=== PATIENT | female | born 1960 | race Caucasian/White ===

== ENCOUNTER 2024-08-30 10:09 | Emergency (ER) | payer BC, OTHER ==
[2024-08-30] MEDS ORDERED: Sodium Chloride 0.9% 10 ML Syringe FLUSH PRN (10:23)
[2024-08-30] MEDS: Nitroglycerin 0.4 MG Tab.SL SL ONE ×2 (10:31→10:52)
[2024-08-30] MEDS: Aspirin 81 MG Tab.Chew PO ONE (10:38)
[2024-08-30 10:58] LABS: HEMATOCRIT 41.4 % (37.0-47.0); HEMOGLOBIN 13.5 g/dL (11.5-16.5); MEAN CORPUSCULAR HEMOGLOBIN 30.2 pg (27.0-32.0); MEAN CORPUSCULAR HGB CONC 32.6 g/dL (31.0-35.0); MEAN PLATELET VOLUME 10.4 fL (6.0-10.0); RED BLOOD CELL COUNT 4.47 M/uL (3.80-5.80); RED CELL DISTRIBUTION WIDTH 13.1 % (11.0-16.0); WHITE BLOOD CELL COUNT,WBC 8.9 K/uL (4.0-11.0)
[2024-08-30] MEDS: Morphine 4 MG/ML VIAL IVPUSH ONE ×2 (10:58→17:02)
[2024-08-30] MEDS: Ondansetron 4 MG/2 ML SDV IVPUSH ONE (11:02)
[2024-08-30 11:21] LABS: ALANINE AMINOTRANSFERASE,ALT 27 U/L (12-78); ALBUMIN 3.7 g/dL (3.4-5.0); ALKALINE PHOSPHATASE 77 U/L (46-116); ANION GAP 15.2 mmol/L (5.0-15.0); ASPARTATE AMNIOTRANSFERASE,AST 16 U/L (15-37); BILIRUBIN TOTAL 0.4 mg/dL (0.0-1.0); BLOOD UREA NITROGEN,BUN 19 mg/dL (8-26); BUN/CREATININE RATIO 24.4 (6-25); CALCIUM 9.1 mg/dL (8.5-10.1); CARBON DIOXIDE,CO2 27.1 mmol/L (21.0-32.0); CHLORIDE,CL 104 mmol/L (98-107); CREATININE 0.78 mg/dL (0.55-1.02); ESTIMATED GFR 86 mL/min (>60); GLUCOSE RANDOM 115 mg/dL (74-100); MAGNESIUM 2.1 mg/dL (1.8-2.4); POTASSIUM,K 4.3 mmol/L (3.5-5.1); PROTEIN TOTAL,TP 7.3 g/dL (6.4-8.2); SODIUM,NA 142 mmol/L (136-145)
[2024-08-30 11:23] LABS: TROPONIN I HIGH SENSITIVITY 63.6 pg/ml (<=60.4)
[2024-08-30] MEDS: Heparin Sodium 5,000 Units/ML Vial IVPUSH ONE (11:40)
[2024-08-30] MEDS: Heparin Sodium/D5W 25,000 UNITS/500 ML BAG IV SCH (11:49)
[2024-08-30 11:53] LABS: PROTHROMBIN TIME 10.7 sec (9.0-11.5); PTT,PARTIAL THROMBOPLSTIN TIME 24.9 SECONDS (24.4-33.2)
[2024-08-30] MEDS: Metoprolol Tartrate 25 MG Tab PO ONE (11:57)
[2024-08-30] MEDS: Clopidogrel 75 MG Tab PO ONE (11:57)
[2024-08-30] MEDS: Tenecteplase 50 MG Kit IV ONE (12:02)
[2024-08-30] MEDS: Heparin Sodium 1,000 Units/ML 10 ML MDV ONE (12:07)
[2024-08-30] MEDS: Nitroglycerin/D5W 25 MG/250 ML BOTTLE IV SCH (12:11)
[2024-08-30 17:31] VITALS: BP 124/82; PULSE 62
== END 2024-08-30 13:49 | disposition home or self-care (01) ==
LOC: LB.ED 10:09
DX: I21.3 ST elevation (STEMI) myocardial infarction of unspecified site (principal); Z79.82 Long term (current) use of aspirin; Z79.899 Other long term (current) drug therapy; Z88.5 Allergy status to narcotic agent; Z91.041 Radiographic dye allergy status
CPT/HCPCS: 36415; 71045; 80053; 83735; 84484; 85027; 85610; 85730; 93005; 96365; 96366; 96368; 96375; 99285-25; A9270-GY; J1644; J2270; J2305; J2405; J3101

== ENCOUNTER 2024-10-06 16:19 | Emergency (ER) | payer OTHER ==
[2024-10-06] MEDS ORDERED: Sodium Chloride 0.9% 10 ML Syringe FLUSH PRN (17:11)
[2024-10-06 17:19] LABS: BASOPHILS ABSOLUTE AUTO 0.04 K/uL (0.02-0.10); BASOPHILS PERCENT AUTO 0.6 % (0.0-0.5); EOSINOPHILS PERCENT AUTO 3.1 % (1.0-5.0); HEMATOCRIT 34.9 % (37.0-47.0); HEMOGLOBIN 11.2 g/dL (11.5-16.5); LYMPHOCYTES ABSOLUTE AUTO 1.72 K/uL (1.50-4.00); MEAN CORPUSCULAR HEMOGLOBIN 30.3 pg (27.0-32.0); MEAN CORPUSCULAR HGB CONC 32.1 g/dL (31.0-35.0); MEAN CORPUSCULAR VOLUME 94 fL (76-96); MEAN PLATELET VOLUME 9.9 fL (6.0-10.0); MONOCYTES ABSOLUTE AUTO 0.58 K/uL (0.20-0.80); MONOCYTES PERCENT AUTO 9.1 % (3.0-10.0); NEUTROPHILS ABSOLUTE AUTO 3.82 K/uL (2.00-7.50); NEUTROPHILS PERCENT AUTO 60.2 % (45.0-70.0); PLATELET COUNT,PLT 258 K/uL (150-500); RED CELL DISTRIBUTION WIDTH 13.1 % (11.0-16.0); WHITE BLOOD CELL COUNT,WBC 6.4 K/uL (4.0-11.0)
[2024-10-06 17:41] LABS: A/G RATIO 1.1 (0.8-2.0); ALANINE AMINOTRANSFERASE,ALT 22 U/L (12-78); ALBUMIN 3.6 g/dL (3.4-5.0); ALKALINE PHOSPHATASE 61 U/L (46-116); ANION GAP 12.8 mmol/L (5.0-15.0); ASPARTATE AMNIOTRANSFERASE,AST 16 U/L (15-37); BILIRUBIN TOTAL 0.4 mg/dL (0.0-1.0); BLOOD UREA NITROGEN,BUN 12 mg/dL (8-26); BUN/CREATININE RATIO 16.4 (6-25); CALCIUM 8.8 mg/dL (8.5-10.1); CARBON DIOXIDE,CO2 25.8 mmol/L (21.0-32.0); CHLORIDE,CL 107 mmol/L (98-107); CREATININE 0.73 mg/dL (0.55-1.02); ESTIMATED GFR 93 mL/min (>60); GLUCOSE RANDOM 91 mg/dL (74-100); POTASSIUM,K 3.6 mmol/L (3.5-5.1); PROTEIN TOTAL,TP 6.9 g/dL (6.4-8.2); SODIUM,NA 142 mmol/L (136-145)
[2024-10-06 18:00] LABS: INFLUENZA A NAA NEGATIVE (NEGATIVE); INFLUENZA B NAA NEGATIVE (NEGATIVE); RESPIRATORY SYNCYTIAL VIR NAA NEGATIVE (NEGATIVE)
[2024-10-06 18:01] LABS: CORONAVIRUS COVID-19 NAA NEGATIVE (NEGATIVE)
[2024-10-06 22:27] VITALS: BP 153/89; PULSE 64
== END 2024-10-06 22:20 | disposition home or self-care (01) ==
LOC: LB.ED 16:19
DX: R06.02 Shortness of breath (principal); R05.9 Cough, unspecified; I10 Essential (primary) hypertension; I25.10 Atherosclerotic heart disease of native coronary artery without angina pectoris; E78.5 Hyperlipidemia, unspecified; Z91.041 Radiographic dye allergy status; Z79.899 Other long term (current) drug therapy; Z88.5 Allergy status to narcotic agent; Z79.02 Long term (current) use of antithrombotics/antiplatelets
CPT/HCPCS: 0241U; 36415; 71045; 80053; 84484; 85025; 85379; 93005; 93010; 99284; 99285